=== PATIENT | female | born 1985 | race Caucasian/White ===

== ENCOUNTER 2018-01-04 15:28 | Emergency (ER) | payer OTHER ==
[2018-01-04 15:39] VITALS: BP 125/70; PULSE 81; TEMP 98.6; BMI 32.2
--- NOTE | 2018-01-04 15:40 | PDOC ---
Rapid Medical Evaluation Time Seen by Provider: 01/04/18 15:38 Medical Evaluation: Allergies Allergy/AdvReac Type Severity Reaction Status Date / Time No Known Allergies Allergy Verified 01/04/18 15:35 01/04/18 15:39 I have performed a brief in-person evaluation of this patient. The patient presents with a chief complaint of: scratches and bites by a friend's cat yesterday. Cat is not up to date with shots. Reports tingling sensation where bites and scratches are Pertinent physical exam findings: NAD unlabored breathing scratches to both upper arms I have ordered the following: urine hcg The patient will proceed to the ED for further evaluation.
[2018-01-04] MEDS ORDERED: DIPHTH,PERTUSS(ACELL),TET 0.5 ML DISP.SYRIN IM ONE (16:01)
[2018-01-04] MEDS ORDERED: AMOX TR/POT CLAV 875MG/125MG TABLETS (FP) PO ONE (16:02)
[2018-01-04] MEDS ORDERED: AMOX TR/POT CLAV 875MG/125MG TABLETS (FP) ONE (16:05)
--- NOTE | 2018-01-04 16:09 | PDOC ---
History of Present Illness - General Chief Complaint: Bite Stated Complaint: CAT BITE Time Seen by Provider: 01/04/18 15:38 - History of Present Illness Initial Comments: 32-year-old female bitten by her friend's cat which is been inoculated and can be watched for the next 48 hours on the left forearm lateral aspect. She complains of redness and warmth around the area of the bite 01/04/18 16:03 Past History - Past Medical History Allergies/Adverse Reactions: Allergies Allergy/AdvReac Type Severity Reaction Status Date / Time No Known Allergies Allergy Verified 01/04/18 15:35 Home Medications: Ambulatory Orders Amox-Tr/K Cl [Augmentin - 875Mg Tablet] 1 tab PO BID #20 tablet 01/04/18 Asthma: No Cancer: No Cardiac Disorders: No COPD: No Diabetes: No Disorders: Yes (BLADDER INCONTINENCE (IC)) HTN: No Seizures: No Thyroid Disease: No Other medical history: HEMACHROMATOSIS - Surgical History Abdominal Surgery: No - Immunization History Td Vaccination: Yes Immunization Up to Date: Yes - Suicide/Smoking/Psychosocial Hx Smoking Status: Yes Smoking History: Never smoked Have you smoked in the past 12 months: No Number of Cigarettes Smoked Daily: 25 Hx Alcohol Use: No Drug/Substance Use Hx: No Hx Substance Use Treatment: No Review of Systems - Review of Systems Comments:: GENERAL/CONSTITUTIONAL: [No fever or chills. No weakness. No weight change.] HEAD, EYES, EARS, NOSE AND THROAT: [No change in vision. No ear pain or discharge. No sore throat.] CARDIOVASCULAR: [No chest pain or shortness of breath.] RESPIRATORY: [No cough, wheezing, or hemoptysis.] GASTROINTESTINAL: [No nausea, vomiting, diarrhea or constipation. No rectal bleeding.] GENITOURINARY: [No dysuria, frequency, or change in urination.] MUSCULOSKELETAL: [No joint or muscle swelling or pain. No neck or back pain. She does have left arm pain and tenderness] SKIN AND BREASTS: [No rash or easy bruising.] NEUROLOGIC: [No headache, vertigo, loss of consciousness, or loss of sensation.] PSYCHIATRIC: [No depression or anxiety.] ENDOCRINE: [No increased thirst. No abnormal weight change.] HEMATOLOGIC/LYMPHATIC: [No anemia, easy bleeding, or history of blood clots.] ALLERGIC/IMMUNOLOGIC: [No hives or skin allergy. No latex allergy.] 01/04/18 16:03 *Physical Exam - Vital Signs Last Vital Signs Temp Pulse Resp BP Pulse Ox 98.6 F 81 19 125/70 98 01/04/18 15:36 01/04/18 15:36 01/04/18 15:36 01/04/18 15:36 01/04/18 15:36 - Physical Exam Comments: There is a small puncture wound on the lateral aspect of the left forearm which has covering eschar. There is surrounding erythema and warmth with induration. About 2 cm in circumference around the bite. There is no focal fluctuance. The upper extremity compartments are soft there is no pain with passive motion of the wrist or elbow. There are no gross sensory or motor deficits. 01/04/18 16:04 *DC/Admit/Observation/Transfer Diagnosis at time of Disposition: Cat bite - Discharge Dispostion Disposition: HOME Condition at time of disposition: Stable Decision to Admit order: No - Referrals Referrals: Yoni Guillen MD [Staff Physician] - Ziyad Cummins MD [Staff Physician] - Best Valentino MD [Staff Physician] - Ck Torres MD [Staff Physician] - - Patient Instructions Printed Discharge Instructions: DI for Cat Bite Additional Instructions: It is very important fetus follow-up with infectious disease doctor prior to finishing the antibiotics. It's best to follow-up in the next 2-3 days. If your symptoms of redness and pain around the area of the bite increase come back to the emergency room. In the meantime is also very important you to observe the cat that bit you for the next 48-72 hours for any behavioral changes. This was a provoked attack. As long as a CAT demonstrates no behavioral changes he did not meet criteria for rabies vaccination. Also please have the cat evaluated by its appliance line assembler. Finish all the antibiotics as prescribed. He may treat your pain with Tylenol and Motrin. If the redness extends outside the outlined [place] that I have drawn on your arm today return to the emergency room. - Post Discharge Activity
== END 2018-01-04 16:13 | disposition home or self-care (01) ==
LOC: JERFT 15:28
PROC: 3E0234Z Introduction of Serum, Toxoid and Vaccine into Muscle, Percutaneous Approach (ICD-10-PCS; principal; 2018-01-04)
DX: S51.852A Open bite of left forearm, initial encounter (principal); W55.01XA Bitten by cat, initial encounter; Y93.89 Activity, other specified; Y92.098 Other place in other non-institutional residence as the place of occurrence of the external cause; Y99.8 Other external cause status
CPT/HCPCS: 84703; 90715; 99281-25

== ENCOUNTER 2021-07-27 15:19 | Emergency (ER) | payer OTHER, BC ==
[2021-07-27 15:31] VITALS: BP 121/78; PULSE 79; TEMP 98.1
[2021-07-27] MEDS ORDERED: KETOROLAC TROMETHAMINE 15 MG/ML VIAL IM ONE (15:50)
[2021-07-27] MEDS ORDERED: METHOCARBAMOL 500 MG TABLET PO ONE (15:50)
[2021-07-27] MEDS ORDERED: KETOROLAC TROMETHAMINE 15 MG/ML VIAL ONE (16:24)
[2021-07-27] MEDS ORDERED: METHOCARBAMOL 500 MG TABLET ONE (16:24)
== END 2021-07-27 16:42 | disposition home or self-care (01) ==
LOC: JERFT 15:19
PROC: 3E023GC Introduction of Other Therapeutic Substance into Muscle, Percutaneous Approach (ICD-10-PCS; principal; 2021-07-27)
DX: S13.4XXA Sprain of ligaments of cervical spine, initial encounter (principal); M54.6 Pain in thoracic spine; V49.9XXA Car occupant (driver) (passenger) injured in unspecified traffic accident, initial encounter
CPT/HCPCS: 72050-TC-FY; 72070-TC-FY; 73030-TC-LT-FY; 99284-25

== ENCOUNTER 2023-11-08 10:56 | Emergency (ER) | payer BC, OTHER ==
[2023-11-08 11:19] VITALS: BP 125/90; PULSE 65; RESP 20; TEMP 98.7; BMI 24.0
[2023-11-08] MEDS ORDERED: ACETAMINOPHEN 325 MG TABLET (FP) ONE (11:58)
[2023-11-08] MEDS: ACETAMINOPHEN 325 MG TABLET (FP) PO ONE (12:00)
== END 2023-11-08 13:49 | disposition home or self-care (01) ==
LOC: FER 10:56
DX: M25.512 Pain in left shoulder (principal)
CPT/HCPCS: 73030-TC-LT-FY; 99283-25

== ENCOUNTER 2024-02-01 13:48 | Emergency (ER) | payer OTHER, BC ==
[2024-02-01 13:54] VITALS: BP 117/65; PULSE 68; RESP 20; TEMP 98.6; BMI 24.1
[2024-02-01] MEDS: ACETAMINOPHEN 500 MG TABLET (FP) PO ONE (14:20)
[2024-02-01] MEDS: LIDOCAINE 4% PATCH TP ONE (14:20)
[2024-02-01] MEDS ORDERED: ACETAMINOPHEN 325 MG TABLET (FP) ONE (14:21)
[2024-02-01] MEDS ORDERED: LIDOCAINE 4% PATCH TP ONE (14:21)
[2024-02-01] MEDS: CYCLOBENZAPRINE HCL 10 MG TABLET (FP) PO ONE (15:03)
[2024-02-01] MEDS ORDERED: LIDOCAINE PATCH REMOVAL MC SCH (22:00)
== END 2024-02-01 16:39 | disposition home or self-care (01) ==
LOC: JERFT 13:48
DX: R20.0 Anesthesia of skin (principal); R20.2 Paresthesia of skin; M54.2 Cervicalgia; V49.40XA Driver injured in collision with unspecified motor vehicles in traffic accident, initial encounter; Y92.410 Unspecified street and highway as the place of occurrence of the external cause
CPT/HCPCS: 72125-TC; 99284-25

== ENCOUNTER 2024-05-31 16:34 | Emergency (ER) | payer BC, OTHER ==
[2024-05-31 16:58] VITALS: BP 127/71; PULSE 102; RESP 18; TEMP 99.7; BMI 24.2
[2024-05-31 17:51] LABS: HEMATOCRIT 47.5 % (32.4-45.2); HEMOGLOBIN 15.8 G/dL (10.7-15.3); MCH 30.9 pg (25.7-33.7); MCHC 33.2 g/dl (32.0-36.0); MEAN CELL VOLUME 92.9 fl (80-96); MEAN PLT VOLUME 8.6 fl (7.5-11.1); RBC 5.11 10^6/uL (3.60-5.2); RDW 13.9 % (11.6-15.6); WHITE BLOOD COUNT 8.9 10^3/uL (4.0-10.8)
[2024-05-31 18:13] LABS: ALBUMIN 4.3 g/dl (3.4-5.0); BILIRUBIN,TOTAL 0.4 mg/dl (0.2-1); CALCIUM 9.1 mg/dl (8.5-10.1); POTASSIUM 4.4 mmol/L (3.5-5.1); TOT PROT 6.1 g/dl (6.4-8.2)
== END 2024-05-31 19:18 | disposition home or self-care (01) ==
LOC: FER 16:34
DX: R00.2 Palpitations (principal)
CPT/HCPCS: 36415; 80053; 84443; 84484; 84703; 85027; 93005; 99284-25